=== PATIENT | female | born 1995 | race Two or more races ===

== ENCOUNTER 2022-12-21 12:17 | Outpatient (CLI) | payer OTHER, SELFPAY ==
[2022-12-21 13:33] LABS: Beta HCG Quantitative 75.27 mIU/ML
== END 2022-12-21 12:18 | disposition home or self-care (01) ==
LOC: ANHLAB 12:20
PROVIDERS: Visit Provider Obstetrics & Gynecology
DX: N92.6 Irregular menstruation, unspecified (principal)
CPT/HCPCS: 36415; 84702

== ENCOUNTER 2022-12-23 08:56 | Outpatient (CLI) | payer OTHER, SELFPAY ==
[2022-12-23 09:49] LABS: Beta HCG Quantitative 193.63 mIU/ML
== END 2022-12-23 08:57 | disposition home or self-care (01) ==
PROVIDERS: Visit Provider Obstetrics & Gynecology
DX: N92.6 Irregular menstruation, unspecified (principal)
CPT/HCPCS: 36415; 84702

== ENCOUNTER 2022-12-30 09:27 | Outpatient (CLI) | payer OTHER, SELFPAY | END 2022-12-30 09:28 | disposition home or self-care (01) | LOC: ANHLAB 09:28 | PROVIDERS: Visit Provider Obstetrics & Gynecology | DX: N92.6 Irregular menstruation, unspecified (principal) | CPT/HCPCS: 36415; 84702 ==

== ENCOUNTER 2023-02-04 10:26 | Outpatient (CLI) | payer OTHER, SELFPAY ==
[2023-02-04 11:02] LABS: Basophils Absolute Auto 0.1 K/mm3 (0.0-0.1); Basophils Percent Auto 0.5 % (0.2-1.2); Eosinophils Absolute Auto 0.2 K/mm3 (0-0.3); Eosinophils Percent Auto 1.4 % (0-4.4); Hematocrit 36.6 % (37.0-47.0); Hemoglobin 12.1 g/dL (12.0-15.0); Immature Granulocyte Absolute 0.04 K/mm3 (0.00-0.031); Immature Granulocyte Percent A 0.4 % (0-0.5); Lymphocytes Absolute Auto 1.87 K/mm3 (0.9-3.2); Lymphocytes Percent Auto 16.6 % (18.3-44.2); Mean Corpuscular HGB Conc 33.1 g/dl (32-36); Mean Corpuscular Hemoglobin 31.8 pg (26-34); Mean Corpuscular Volume 96.1 fl (80-100); Mean Platelet Volume 9.3 fl (7.4-10.4); Monocytes Absolute Auto 0.7 K/mm3 (0.1-0.6); Monocytes Percent Auto 6.2 % (2.6-8.5); Neutrophils Absolute Auto 8.4 K/mm3 (1.3-6.7); Neutrophils Percent Auto 74.9 % (45.5-73.1); Platelet Count Result 365 k/mm3 (150-375); Red Blood Count 3.81 M/mm3 (4.2-5.4); Red Cell Distribution Width 12.5 % (11.5-14.5); White Blood Count 11.3 K/mm3 (4.5-10.0)
[2023-02-04 12:00] LABS: HIV 1/2 Ab P24 Ag Result Negative (Negative)
[2023-02-04 12:39] LABS: Hepatitis B Surface Antigen Negative (Negative); Rubella IgG Antibody 5.1 IU/ML
[2023-02-04 17:06] LABS: Rapid Plasma Reagin Non-Reactive (NonReactive)
[2023-02-07 11:21] LABS: CMV IgG Antibody <0.60 U/mL (<0.60)
== END 2023-02-04 10:27 | disposition home or self-care (01) ==
PROVIDERS: PCP Internal Medicine; Visit Provider Obstetrics & Gynecology
DX: Z34.90 Encounter for supervision of normal pregnancy, unspecified, unspecified trimester (principal); Z3A.00 Weeks of gestation of pregnancy not specified
CPT/HCPCS: 36415; 85025; 86592; 86644; 86703; 86747; 86762; 86787; 86850; 87086; 87340; G0432

== ENCOUNTER 2023-06-11 09:32 | Outpatient (CLI) | payer OTHER, SELFPAY ==
[2023-06-11 11:48] LABS: Basophils Percent Auto 0.4 % (0.2-1.2); Eosinophils Absolute Auto 0.2 K/mm3 (0-0.3); Eosinophils Percent Auto 1.3 % (0-4.4); Hematocrit 33.9 % (37.0-47.0); Hemoglobin 10.9 g/dL (12.0-15.0); Immature Granulocyte Absolute 0.05 K/mm3 (0.00-0.031); Immature Granulocyte Percent A 0.4 % (0-0.5); Lymphocytes Absolute Auto 1.48 K/mm3 (0.9-3.2); Lymphocytes Percent Auto 13.1 % (18.3-44.2); Mean Corpuscular HGB Conc 32.2 g/dl (32-36); Mean Corpuscular Hemoglobin 31.4 pg (26-34); Mean Corpuscular Volume 97.7 fl (80-100); Mean Platelet Volume 10.2 fl (7.4-10.4); Monocytes Absolute Auto 0.8 K/mm3 (0.1-0.6); Monocytes Percent Auto 6.7 % (2.6-8.5); Neutrophils Absolute Auto 8.8 K/mm3 (1.3-6.7); Neutrophils Percent Auto 78.1 % (45.5-73.1); Platelet Count Result 352 k/mm3 (150-375); Red Blood Count 3.47 M/mm3 (4.2-5.4); Red Cell Distribution Width 12.4 % (11.5-14.5); White Blood Count 11.3 K/mm3 (4.5-10.0)
[2023-06-11 11:56] LABS: Glucose 1 Hour PP 50gm Dose 86 mg/dL
[2023-06-11 12:13] LABS: Iron 58 ug/dL (37-170)
[2023-06-11 12:23] LABS: Percent Iron Saturation 14 % (20-50)
[2023-06-11 12:38] LABS: HIV 1/2 Ab P24 Ag Result Negative (Negative)
[2023-06-11 12:49] LABS: Ferritin 9.66 ng/mL (6.24-137)
== END 2023-06-11 09:33 | disposition home or self-care (01) ==
LOC: ANHLAB 09:33
PROVIDERS: PCP Internal Medicine; Visit Provider Obstetrics & Gynecology
DX: Z34.90 Encounter for supervision of normal pregnancy, unspecified, unspecified trimester (principal); Z3A.00 Weeks of gestation of pregnancy not specified
CPT/HCPCS: 36415; 82728; 82947; 83540; 83550; 85025; 86703; G0432

== ENCOUNTER → 2023-08-04 16:20 | Outpatient (CLI) | payer OTHER, SELFPAY ==
--- NOTE | ~2023-08-04 | US_ITS ---
EXAMINATION: US OB follow up DATE: 08/04/2023 16:47 INDICATION: Evaluate growth TECHNIQUE: Real-time transabdominal obstetric ultrasound. FINDINGS: Comparison to multiple prior studies sequentially, with oldest reviewed study dated 023. There is a single living fetus in vertex presentation. The placenta is anterior without placenta pre via. cardiac activity and movement is noted with a heart rate of 130 beats per minute. T he amniotic fluid volume is upper normal. GABINO measures 24.6 cm. The following biometric data were obtained: BPD: 86mm corresponds to gestational age 34 weeks 4 days. Head circumference: 312mm corresponds to gestational age 34 weeks 6 days. Abdominal circumference: 309mm corresponds to gestational age 34 weeks 6 days. Femur length: 65mm corresponds to gestational age 33 weeks 3 days. Estimated weight: 2429grams +/- 364grams. IMPRESSION: 1. Single living intrauterine in vertex presentation with an estimated gestational age of 34 weeks 3 days by current ultrasound. 2. GABINO upper normal measuring 24.6 cm (normal range for gestational age is 7.7-24.9 cm). Reviewed, dictated and finalized at location B. O [facility] IMPRESSION: 1. Single living intrauterine in vertex presentation with an estimat ed gestational age of 34 weeks 3 days by current ultrasound. 2. GABINO upper normal measuring 24.6 cm (normal range for gestational age is 7.7- 24.9 cm).
== END ==
PROVIDERS: PCP Obstetrics & Gynecology; Visit Provider Obstetrics & Gynecology
DX: Z36.9 Encounter for antenatal screening, unspecified (principal); Z3A.34 34 weeks gestation of pregnancy
CPT/HCPCS: 76816

== ENCOUNTER 2023-08-11 21:37 | Observation (INO) | payer OTHER, SELFPAY ==
[2023-08-11] VITALS (8 sets, daily range): BP systolic 110–162; BP diastolic 62–99; PULSE 53–63; BMI 37.0
[2023-08-11 21:02] LABS: Basophils Percent Auto 0.5 % (0.2-1.2); Eosinophils Absolute Auto 0.1 K/mm3 (0-0.3); Eosinophils Percent Auto 1.6 % (0-4.4); Hematocrit 35.7 % (37.0-47.0); Hemoglobin 11.6 g/dL (12.0-15.0); Immature Granulocyte Absolute 0.02 K/mm3 (0.00-0.031); Immature Granulocyte Percent A 0.2 % (0-0.5); Lymphocytes Absolute Auto 2.33 K/mm3 (0.9-3.2); Lymphocytes Percent Auto 26.7 % (18.3-44.2); Mean Corpuscular HGB Conc 32.5 g/dl (32-36); Mean Corpuscular Hemoglobin 30.4 pg (26-34); Mean Corpuscular Volume 93.7 fl (80-100); Mean Platelet Volume 10.6 fl (7.4-10.4); Monocytes Absolute Auto 0.7 K/mm3 (0.1-0.6); Monocytes Percent Auto 7.6 % (2.6-8.5); Neutrophils Absolute Auto 5.5 K/mm3 (1.3-6.7); Neutrophils Percent Auto 63.4 % (45.5-73.1); Platelet Count Result 326 k/mm3 (150-375); Red Blood Count 3.81 M/mm3 (4.2-5.4); Red Cell Distribution Width 12.8 % (11.5-14.5); White Blood Count 8.7 K/mm3 (4.5-10.0)
[2023-08-11 21:09] LABS: Appearance Urine Clear (Clear); Bacteria Urine None Seen /hpf; Bilirubin Urine Negative (Negative); Blood Urine Negative (Negative); Color Urine Yellow (Yellow); Glucose Urine UA Negative (Negative); Ketones Urine Negative (Negative); Leukocyte Esterase Ur Negative LEU/UL (Negative); Nitrate Urine Negative (Negative); Non Pathogenic Casts 0-2; Protein Urine 1+ mg/dL (Negative); RBC Urine 0-2 /hpf (0-2); Specific Grav Ur 1.009 (1.001-1.035); Squamous Epithelial Cell Urine None seen /hpf (Few); Urobilinogen Urine 0.2 mg/dL (<2.0); WBC Urine 0-5 /hpf; pH Urine 6.5 (5.0-9.0)
[2023-08-11 21:10] LABS: Creatinine Urine 47.1 mg/dL; Total Protein Urine Random 45 mg/dL; Ur Ttl Prot Creatinine Ratio 0.96 mg/mg (0-0.20)
[2023-08-11 21:14] LABS: Add Urine Microscopic? YES
[2023-08-11 21:19] LABS: Alanine Aminotransferase 13 U/L (6-35); Albumin Level 3.4 g/dL (3.5-5.1); Alkaline Phosphatase 132 U/L (38-126); Anion Gap 10 mmol/L (8-16); Aspartate Amino Transferase 24 U/L (14-36); Bilirubin,Total 0.3 mg/dL (0.2-1.3); Blood Urea Nitrogen 14 mg/dL (7-17); Calcium 9.1 mg/dL (8.4-10.2); Carbon Dioxide 17 mmol/L (22-30); Chloride 108 mmol/L (98-107); Estimated CRCL calculation 90 ml/min; Estimated Glomerular Filt Rate > 60; Glucose 100 mg/dL (65-110); Potassium 4.3 mmol/L (3.4-5.0); Sodium 135 mmol/L (137-145); Uric Acid 8.5 mg/dL (2.5-7.5)
--- NOTE | 2023-08-11 22:36 | PC.NURSE ---
2137- Dr. Moody called and made aware of pts complaints of - headache rated 2/10 - elevated bp at home MD also made aware of - latest blood pressures - CBC/ CMP/ UA results -pts denial of changes in vision and upper quadrant pain. Orders received to admit pt for overnight observation and begin 24 hour urine as well as monitor blood pressures.
[2023-08-12] VITALS (24 sets, daily range): BP systolic 95–128; BP diastolic 59–84; PULSE 52–82
--- NOTE | 2023-08-12 07:19 | PC.NURSE ---
Dr. Neely at the bedside discussing POC with the pt. MD would like pt to complete 24 hour urine and return it and then follow up with Dr. Landa in the office early next week.
--- NOTE | 2023-08-12 08:45 | PC.NURSE ---
Dr. Landa called in and ordered that pt have NST, BPP and repeat PIH labs, no urine, on Tuesday.
--- NOTE | 2023-08-12 10:10 | PM.OBTRLD ---
OB - Triage/Final Diagnosis Visit Information Reason for evaluation: other ( Elevated blood pressure with headache) Comments/Additional reasons for admission: I have assessed the risk for this patient, Megan King, and determined that she would benefit from observation care. Evaluation Laboratory results: Laboratory Tests 08/11/23 20:55 WBC 8.7 RBC 3.81 L Hgb 11.6 L Hct 35.7 L MCV 93.7 MCH 30.4 MCHC 32.5 RDW 12.8 Plt Count 326 MPV 10.6 H Immature Gran % (Auto) 0.2 Neut % (Auto) 63.4 Lymph % (Auto) 26.7 [place] % (Auto) 7.6 Eos % (Auto) 1.6 Baso % (Auto) 0.5 Lymph # (Auto) 2.33 [place] # (Auto) 0.7 H Eos # (Auto) 0.1 Baso # (Auto) 0.0 Abs Immat Gran (auto) 0.02 Absolute Neuts (auto) 5.5 Absolute Nucleated RBC 0.0 Nucleated RBC % 0.0 Sodium 135 L Potassium 4.3 Chloride 108 H Carbon Dioxide 17 L Anion Gap 10 BUN 14 Creatinine 0.80 Estim Creat Clear Calc 90 Estimated GFR > 60 Glucose 100 Uric Acid 8.5 H Calcium 9.1 Total Bilirubin 0.3 AST 24 ALT 13 Alkaline Phosphatase 132 H Total Protein 7.0 Albumin 3.4 L Urine Color Yellow Urine Appearance Clear Urine pH 6.5 Ur Specific [place] 1.009 Urine Protein 1+ H Urine Glucose (UA) Negative Urine Ketones Negative Ur Blood (Man) Negative Urine Nitrate Negative Urine Bilirubin Negative Urine Urobilinogen 0.2 Leukocyte Esterase Rfl Negative Urine RBC 0-2 Urine WBC 0-5 Ur Squamous Epith Cells None seen Urine Bacteria None seen Urine Casts 0-2 U Random Total Protein 45 Urine Creatinine 47.1 Protein/Creat Ratio 2 0.96 H Vital signs: Vital Signs - 24 hr 08/11/23 21:00 08/11/23 21:31 08/11/23 22:16 Pulse Rate 62 54 L 54 L Blood Pressure 162/99 H 139/85 148/88 H Oxygen Delivery 08/11/23 22:30 08/11/23 22:45 08/11/23 23:15 Pulse Rate 58 L 53 L 63 Blood Pressure 144/90 H 134/86 127/86 Oxygen Delivery 08/11/23 23:31 08/11/23 23:45 08/12/23 00:15 Pulse Rate 60 62 56 L Blood Pressure 111/67 110/62 127/75 Oxygen Delivery 08/12/23 00:31 08/12/23 00:45 08/12/23 01:00 Pulse Rate 69 62 63 Blood Pressure 104/64 123/66 119/72 Oxygen Delivery 08/12/23 01:15 08/12/23 01:30 08/12/23 01:45 Pulse Rate 72 71 62 Blood Pressure 124/75 102/69 118/81 Oxygen Delivery 08/12/23 02:01 08/12/23 02:15 08/12/23 02:30 Pulse Rate 63 70 65 Blood Pressure 120/78 120/77 116/72 Oxygen Delivery 08/12/23 02:45 08/12/23 03:00 08/12/23 03:15 Pulse Rate 60 76 74 Blood Pressure 122/70 120/81 118/82 Oxygen Delivery 08/12/23 03:30 08/12/23 03:45 08/12/23 04:00 Pulse Rate 72 82 74 Blood Pressure 111/70 119/76 101/74 Oxygen Delivery 08/12/23 04:31 08/12/23 05:00 08/12/23 05:31 Pulse Rate 52 L 67 59 L Blood Pressure 123/69 128/84 95/59 L Oxygen Delivery 08/12/23 06:00 08/12/23 06:30 08/12/23 07:00 Pulse Rate 54 L 58 L 78 Blood Pressure 104/67 108/69 112/68 Oxygen Delivery 08/12/23 08:00 08/11/23 22:27 Pulse Rate 55 L Blood Pressure 128/81 Oxygen Delivery Room Air Comments: 27-year-old female admitted with headache and elevated blood pressure at home. Presents to Labor and delivery and the 1st couple of blood pressures were elevated, since that time all have been normal in the 120/70 range. All of her labs other than PC ratio have come back with normal findings. Also headache has resolved. Assessment 1. Hypertension, likely mild preeclampsia. Lengthy discussion with patient and regarding the nature of this entity. She is aware that if any symptoms change, movement changes, any other symptomatology of concern she is to return and likely at that time will be delivered. She agrees with the plan of continuing at home with bedrest and follow up next week, if any significant changes occur we will induce at that time. At this point would feel if another week to 10 days of could be achieved that would be helpful, and at t
== END 2023-08-12 08:50 | disposition home or self-care (01) ==
LOC: ANHOBPP 21:58 → ANHOBOP 23:49 → ANHOBPP 08-12 08:31
PROVIDERS: Admitting Provider Obstetrics & Gynecology; PCP Obstetrics & Gynecology; Visit Provider Obstetrics & Gynecology
DX: O99.413 Diseases of the circulatory system complicating pregnancy, third trimester (principal); I11.9 Hypertensive heart disease without heart failure; O26.893 Other specified pregnancy related conditions, third trimester; R51.9 Headache, unspecified; Z3A.37 37 weeks gestation of pregnancy
CPT/HCPCS: 36415; 59025; 80053; 81001; 82570; 84156; 84550; 85025; 87086; G0378; G0379

== ENCOUNTER 2023-08-12 17:03 | Inpatient (IN) | payer OTHER, SELFPAY ==
[2023-08-12] VITALS (22 sets, daily range): BP systolic 107–150; BP diastolic 58–95; PULSE 73–107; BMI 37.0
[2023-08-12 18:23] LABS: Basophils Absolute Auto 0.1 K/mm3 (0.0-0.1); Basophils Percent Auto 0.6 % (0.2-1.2); Eosinophils Absolute Auto 0.1 K/mm3 (0-0.3); Hematocrit 38.6 % (37.0-47.0); Hemoglobin 12.5 g/dL (12.0-15.0); Immature Granulocyte Absolute 0.03 K/mm3 (0.00-0.031); Immature Granulocyte Percent A 0.3 % (0-0.5); Lymphocytes Absolute Auto 2.05 K/mm3 (0.9-3.2); Lymphocytes Percent Auto 23.6 % (18.3-44.2); Mean Corpuscular HGB Conc 32.4 g/dl (32-36); Mean Corpuscular Hemoglobin 30.6 pg (26-34); Mean Corpuscular Volume 94.4 fl (80-100); Mean Platelet Volume 10.6 fl (7.4-10.4); Monocytes Absolute Auto 0.6 K/mm3 (0.1-0.6); Monocytes Percent Auto 6.9 % (2.6-8.5); Neutrophils Absolute Auto 5.9 K/mm3 (1.3-6.7); Neutrophils Percent Auto 67.6 % (45.5-73.1); Platelet Count Result 317 k/mm3 (150-375); Red Blood Count 4.09 M/mm3 (4.2-5.4); Red Cell Distribution Width 12.9 % (11.5-14.5); White Blood Count 8.7 K/mm3 (4.5-10.0)
[2023-08-12 18:36] LABS: Alanine Aminotransferase 14 U/L (6-35); Albumin Level 3.6 g/dL (3.5-5.1); Alkaline Phosphatase 146 U/L (38-126); Anion Gap 9 mmol/L (8-16); Aspartate Amino Transferase 25 U/L (14-36); Bilirubin,Total 0.3 mg/dL (0.2-1.3); Blood Urea Nitrogen 13 mg/dL (7-17); Calcium 9.5 mg/dL (8.4-10.2); Carbon Dioxide 19 mmol/L (22-30); Chloride 107 mmol/L (98-107); Estimated Glomerular Filt Rate > 60; Glucose 77 mg/dL (65-110); Potassium 3.7 mmol/L (3.4-5.0); Sodium 135 mmol/L (137-145); Uric Acid 8.4 mg/dL (2.5-7.5)
[2023-08-12] MEDS: DINOPROSTONE 10 MG VAG INSERT VAGINAL (18:44)
--- NOTE | 2023-08-12 19:16 | LDADM ---
This patient, Megan King, was admitted to Labor/Delivery/Recovery 104 on 08/12/23 at 17:03. Plans for labor, pain management and were discussed with patient. Patient/family oriented to hospital policies and general routines including ID bracelet, bed and alarms, visiting hours, pain management, procedures, bathroom and other care routines, personal items, smoking policy, room service/diet and guest tray routines, infant security routines, and visiting hours. Patient/Family are encouraged to report perceived risks to care and to ask questions if they do not understand what they are told or what they should do. See OBIX for further documentation.
[2023-08-12 23:16] LABS: Collection Time Urine 24 HOURS
[2023-08-12 23:26] LABS: Total Volume 24 Hour Urine 2900 ml
[2023-08-12 23:30] LABS: Total Protein Urine Random 31 mg/dL
[2023-08-12 23:31] LABS: Creatinine Clearance Urine 125.8 ml/min (75-125); Creatinine Urine 45.9 mg/dL; Patient Weight 189 Lbs
[2023-08-12 23:51] LABS: Total Protein Urine 24 Hr 899 mg/24hr (28-141)
[2023-08-12 23:55] LABS: Specific Gravity Ur 1.015
[2023-08-13] VITALS (228 sets, daily range): BP systolic 103–163; BP diastolic 61–127; PULSE 57–170; RESP 18; TEMP 36.4–37.4; O2SAT 92–100
[2023-08-13] MEDS: hydrOXYzine HCL 25 MG TABLET PO (03:31)
[2023-08-13] MEDS: ACETAMINOPHEN 500 MG TABLET 1000 MG PO (03:42)
[2023-08-13] MEDS: OXYTOCIN 30 UNITS/NS 500 ML 30 UNITS/500 ML BAG 6 UNITS IV CONT (05:48)
[2023-08-13] MEDS: LACTATED RINGERS 1,000 ML 125 ML IV CONT ×2 (05:48→11:00)
--- NOTE | 2023-08-13 07:43 | WPDHPUPDATE1 ---
History and Physical Update Update Date/Time: 08/13/23 07:43 27-year-old female seen yesterday Labor and delivery for elevated blood pressure. These pressures resolved and patient was feeling well was discharged home with parameters for which to return. Blood pressure was 140-150 over 90s and therefore re-presented last night. Cervidil was initiated. History and Physical has been reviewed, including an updated exam of the patient. There are NO changes in the patient's condition. Risks, benefits, and alternatives have been discussed and questions answered. Patient agrees to proceed with procedure.
--- NOTE | 2023-08-13 07:45 | WPDOBADMIT ---
Obstetrics - Admit Note Admission Note: record reviewed. No pertinent additions to the history and/or any subsequent changes in the physical findings that are not consistent with the expected course of the were found. Additions to the history and/or subsequent changes in the physical findings follow. See H&P update. Also with elevated protein in 24hour urine from last preeclampsia without severe features is ruled in. None.
[2023-08-13] MEDS: fentaNYL CITRATE INJ (*CRX) 100 MCG/2 ML VIAL IV PUSH (09:07)
--- NOTE | 2023-08-13 09:25 | WPDANESEPP ---
Anes - Eval Pre Procedure Procedure: labor epidural Date/Time: 08/13/23 09:25 Preop Diagnosis: labor pain Pre Op Diagnosis: Induction of Labor Patient Data Age: 27 Gender: F Height: 1.52 m Weight: 86 kg Last Vital Signs Temp 36.6 C 08/13/23 08:50 Pulse 93 08/13/23 09:20 BP 133/82 08/13/23 09:20 Pulse Ox 96 08/13/23 09:23 O2 Del Method Room Air 08/13/23 06:00 Allergies Allergy/AdvReac Type Severity Reaction Status Date / Time sulfamethoxazole AdvReac Unknown Gastrointestinal Verified 08/12/23 19:27 [From Bactrim] Upset trimethoprim [From Bactrim] AdvReac Unknown Gastrointestinal Verified 08/12/23 19:27 Upset Home Medications Medication Instructions Recorded Confirmed Type docosahexaenoic acid 200 mg 200 mg PO DAILY 07/06/23 08/12/23 History capsule ( DHA) ferrous sulfate 325 mg (65 mg 325 mg PO DAILY 07/06/23 08/12/23 History iron) tablet (Feosol) Laboratory Tests 08/12/23 08/12/23 08/12/23 18:14 22:36 22:36 WBC 8.7 K/mm3 (4.5-10.0) RBC 4.09 L M/mm3 (4.2-5.4) Hgb 12.5 g/dL (12.0-15.0) Hct 38.6 % (37.0-47.0) MCV 94.4 fl (80-100) MCH 30.6 pg (26-34) MCHC 32.4 g/dl (32-36) RDW 12.9 % (11.5-14.5) Plt Count 317 k/mm3 (150-375) MPV 10.6 H fl (7.4-10.4) Immature Gran % (Auto) 0.3 % (0-0.5) Neut % (Auto) 67.6 % (45.5-73.1) Lymph % (Auto) 23.6 % (18.3-44.2) [place] % (Auto) 6.9 % (2.6-8.5) Eos % (Auto) 1.0 % (0-4.4) Baso % (Auto) 0.6 % (0.2-1.2) Lymph # (Auto) 2.05 K/mm3 (0.9-3.2) [place] # (Auto) 0.6 K/mm3 (0.1-0.6) Eos # (Auto) 0.1 K/mm3 (0-0.3) Baso # (Auto) 0.1 K/mm3 (0.0-0.1) Abs Immat Gran (auto) 0.03 K/mm3 (0.00-0.031) Absolute Neuts (auto) 5.9 K/mm3 (1.3-6.7) Absolute Nucleated RBC 0.0 K/mm3 (0.0-0.012) Nucleated RBC % 0.0 % (0.0-0.2) Sodium 135 L mmol/L (137-145) Potassium 3.7 mmol/L (3.4-5.0) Chloride 107 mmol/L (98-107) Carbon Dioxide 19 L mmol/L (22-30) Anion Gap 9 mmol/L (8-16) BUN 13 mg/dL (7-17) Creatinine 0.70 mg/dL (0.7-1.0) Estim Creat Clear Calc Not Reportable Estimated GFR > 60 (59 - ) Glucose 77 mg/dL (65-110) Uric Acid 8.4 H mg/dL (2.5-7.5) Calcium 9.5 mg/dL (8.4-10.2) Total Bilirubin 0.3 mg/dL (0.2-1.3) AST 25 U/L (14-36) ALT 14 U/L (6-35) Alkaline Phosphatase 146 H U/L (38-126) Total Protein 7.0 g/dL (6.3-8.2) Albumin 3.6 g/dL (3.5-5.1) U Random Total Protein 31 mg/dL Ur 24 Hour Volume 2900 ml 2900 ml Urine Creatinine 45.9 mg/dL Creatinine Clearance 125.8 H ml/min (75-125) Ur Total Protein 24 Hr 899 H mg/24hr (28-141) RPR Pending Blood Type O Positive Antibody Screen Negative Patient hx anesthesia problems: none Family hx anesthesia problems: none Results Review: All pre-operative results and documents have been reviewed as part of the pre-operative evaluation. [facility] Past Medical History Medical History Frequent headaches Migraines Surgical History Surgical History Mccall teeth removed Family History Family History Grandparent Diabetes mellitus Grandparent Afib Social History Social History Smoking status: Never smoker Alcohol intake: never Substance use: never Do You Feel Safe in your Home?: Yes Lack o
--- NOTE | 2023-08-13 18:49 | PM.OBPRVD ---
OB - Vaginal Delivery Note Procedure Delivery date: 08/13/23 Events: Preeclampsia w/o severe features Induction method: Per Cervidil Protocol Delivery augmentation: Rupture of Membranes and Pitocin Delivery monitor: External FHT and Internal Uterine Route of delivery: Episiotomy description: None Laceration Description: Perineal - 2nd Degree Delivery repair: chromic Specimen: Yes Quantitative Blood Loss (ml): 300 Anesthesia type: Epidural Disposition: Floor Complications: No immediate complications Narrative: Patient prepped in usual manner for this procedure. Maternal expulsive efforts readily delivered vertex over intact perineum. Nuchal cord was noted and reduced. Rest of baby delivered without difficulty, cord clamped cut, and baby placed on maternal abdomen. Placenta delivered spontaneously. Uterus well contracted with minimal bleeding. Second-degree laceration was noted which was then approximated using 2-0 chromic to approximate the vaginal tissue deep tissue and a subcuticular layer with good approximation and hemostasis noted. At this point the procedure was considered terminated with immediate postoperative condition of mother and baby both excellent. Baby Weeks of gestation at delivery: 37 Infant gender: Female presentation: vertex position: Right Occiput Anterior Placenta delivery description: Spontaneous Cord Vessel Description: 3 Vessels, Nuchal Cord and Reduced AMG Delivery Billing Delivery Delivery: Delivery Charge
[2023-08-13] MEDS: OXYTOCIN 30 UNITS/NS 500 ML 30 UNITS/500 ML BAG 125 UNITS IV CONT (18:56)
[2023-08-13] MEDS: BENZOCAINE 20% AER SPR (*SP) 56 GM CAN 1 SPRAY TOPICAL (19:20)
[2023-08-13] MEDS: IBUPROFEN 600 MG TABLET PO (19:20)
[2023-08-13] MEDS: WITCH HAZEL 40 PADS 1 PAD TOPICAL (19:20)
--- NOTE | 2023-08-13 21:37 | OBPPTRN ---
Patient transferred to post room #290 via (wheelchair) Support person present. Oriented to unit, room, information board, rooming in, admission packet and security measures. Patient verbalizes understanding.
[2023-08-13] MEDS: ACETAMINOPHEN 325 MG TABLET 650 MG PO (22:00)
[2023-08-13] MEDS: LABETALOL HCL 100 MG TABLET PO (22:03)
[2023-08-14] VITALS (8 sets, daily range): BP systolic 108–144; BP diastolic 62–95; PULSE 67–86; RESP 16–18; TEMP 36.6–36.8; O2SAT 98–99
[2023-08-14 04:31] LABS: Hematocrit 29.6 % (37.0-47.0); Hemoglobin 9.6 g/dL (12.0-15.0)
[2023-08-14] MEDS: IBUPROFEN 600 MG TABLET PO ×3 (05:50→20:31)
[2023-08-14] MEDS: ACETAMINOPHEN 325 MG TABLET 650 MG PO ×2 (07:36→16:00)
[2023-08-14] MEDS: DOCUSATE SODIUM 100 MG CAPSULE PO ×2 (07:36→16:01)
[2023-08-14] MEDS: POLYSACCHARIDE IRON COMPLEX 150 MG CAPSULE PO ×2 (07:36→16:00)
[2023-08-14] MEDS: LABETALOL HCL 100 MG TABLET PO ×2 (09:15→20:30)
--- NOTE | 2023-08-14 10:57 | PM.OBPNVD ---
OB - PN: Subj Subjective Date/time seen: 08/14/23 10:57 No c/o CHIU, SOB, CP. Moderate bleeding. No other c/o. BP 120-130/70-90 abd soft fundus NT labs noted Home tomorrow if no issues Hospital f/u 24-48 hours post d/c Office one week post d/c OB - PN: Obj Data Labs 08/14/23 04:19 08/12/23 18:14 Labs: Laboratory Results - last 24 hr 08/14/23 04:19 Hgb 9.6 L Hct 29.6 L OB - PN A/P Time Spent With Patient Time: Total time spent is greater than 50% in coordination of care (as documented) at patient's floor/unit and/or counseling patient:
--- NOTE | 2023-08-14 10:59 | PM.OBDSVD ---
DS: Admitting Diagnosis Discharge Date 08/15/2023 Admitting Diagnosis 1. Thirty-seven week in term 2. preeclampsia without severe feature DS: Discharge Diagnosis Discharge Diagnosis (1) 37 weeks gestation of : Code(s): Z3A.37 - 37 weeks gestation of Status: Acute (2) Pre-eclampsia during in third trimester, antepartum: Code(s): O14.93 - Unspecified pre-eclampsia, third trimester Status: Acute OB - DS: Summary OB Procedures : None OB Procedures Intrapartum: Spontaneous Vag Delivery OB Procedures: : None Peripartum Data Laceration Description: Perineal - 2nd Degree Episiotomy description: None Time Spent with Patient Time attestation: Total time spent providing and/or coordinating discharge services: DS: Data Data Completed and Pending Pending studies at discharge: Pending at discharge 08/13/23 19:22 Surgical [PTH] Routine Labs on day of discharge: Labs from last 24 hours 08/14/23 04:19 Hgb 9.6 L Hct 29.6 L Discharge Plan Discharge Discharging Clinician: Van Neely Patient Disposition: Home, Self-Care Activity: as tolerated Diet: as tolerated Patient Instructions: Antibiotic Form Stand Alone Forms: General Discharge Information Follow-up/Referrals: Valerie Landa MD [Primary Care Provider] - 1 Week Discharge Medications: New labetalol 100 mg Tablet 100 mg PO Q12HR Qty: 60 1RF ibuprofen 600 mg Tablet 600 mg PO Q6H PRN (Reason: Cramping) Qty: 30 0RF Continued DHA 200 mg capsule 200 mg PO DAILY ferrous sulfate [Feosol] 325 mg (65 mg iron) tablet 325 mg PO DAILY Date of admission: 08/12/23 17:03 Primary Care Provider: Valerie Landa Admitting Provider: Van Neely Attending physician on admission: Van Neely Condition: Stable
--- NOTE | 2023-08-14 19:10 | PC.NURSE ---
Patient instructed to view the discharge video Mother & Baby Care, The First Two Weeks online. Patient was given the opportunity and encouraged to ask questions. Patient verbalized understanding of information shared and has been given the mother/baby guide for home reference.
[2023-08-15 05:05] VITALS: BP 123/81; PULSE 80
[2023-08-15] MEDS: IBUPROFEN 600 MG TABLET PO (05:07)
[2023-08-15 09:25] VITALS: BP 143/105; PULSE 84; RESP 16; TEMP 36.7; O2SAT 97
[2023-08-15] MEDS: ACETAMINOPHEN 325 MG TABLET 650 MG PO (09:25)
[2023-08-15 09:27] VITALS: PULSE 84
[2023-08-15] MEDS: LABETALOL HCL 100 MG TABLET PO (09:27)
[2023-08-15] MEDS: POLYSACCHARIDE IRON COMPLEX 150 MG CAPSULE PO (09:27)
[2023-08-15] MEDS: DOCUSATE SODIUM 100 MG CAPSULE PO (09:28)
[2023-08-15] MEDS: MEASLES,MUMPS,RUBELLA VACCINE 0.5 ML VIAL SUB-Q (09:29)
[2023-08-15 10:05] VITALS: BP 128/92
--- NOTE | 2023-08-15 12:50 | PC.NURSE ---
1000 Patient viewed the discharge video Mother & Baby Care, The First Two Weeks . Patient was given the opportunity and encouraged to ask questions. Patient verbalized understanding of information shared and has been given the mother/baby guide for home reference.
[2023-08-15 13:41] LABS: Rapid Plasma Reagin Non-Reactive (NonReactive)
[2023-08-16 10:25] VITALS: BP 133/87; PULSE 75; RESP 18; TEMP 37.3; O2SAT 100
== END 2023-08-15 12:25 | disposition home or self-care (01) | DRG 807 ==
LOC: ANHLDR 19:01 → ANHOB2 08-13 21:50
PROVIDERS: Admitting Provider Obstetrics & Gynecology; PCP Obstetrics & Gynecology; Visit Provider Obstetrics & Gynecology
DX: O14.94 Unspecified pre-eclampsia, complicating childbirth (principal); Z37.0 Single live birth; Z3A.37 37 weeks gestation of pregnancy; O13.4 Gestational [pregnancy-induced] hypertension without significant proteinuria, complicating childbirth; O70.1 Second degree perineal laceration during delivery; O69.81X0 Labor and delivery complicated by cord around neck, without compression, not applicable or unspecified
CPT/HCPCS: 36415; 59025; 80053; 81001; 81050; 82570; 82575; 84112; 84156; 84550; 85014; 85018; 85025; 86592; 86850; 86900; 86901; 87086; 88307; 90710; A9270; G0378; G0379; J2590; J2795; J3010; J7120

== ENCOUNTER 2023-08-26 08:30 | Outpatient (CLI) | payer OTHER, SELFPAY ==
[2023-08-26 08:46] VITALS: BP 134/87; PULSE 62
[2023-08-26 09:00] VITALS: BP 130/85; PULSE 63
[2023-08-26 09:15] VITALS: BP 131/83; PULSE 54
[2023-08-26 09:21] LABS: Basophils Absolute Auto 0.1 K/mm3 (0.0-0.1); Basophils Percent Auto 1.2 % (0.2-1.2); Eosinophils Absolute Auto 0.2 K/mm3 (0-0.3); Eosinophils Percent Auto 3.2 % (0-4.4); Hematocrit 36.5 % (37.0-47.0); Hemoglobin 11.1 g/dL (12.0-15.0); Immature Granulocyte Absolute 0.02 K/mm3 (0.00-0.031); Immature Granulocyte Percent A 0.3 % (0-0.5); Lymphocytes Absolute Auto 1.66 K/mm3 (0.9-3.2); Mean Corpuscular HGB Conc 30.4 g/dl (32-36); Mean Corpuscular Hemoglobin 29.9 pg (26-34); Mean Corpuscular Volume 98.4 fl (80-100); Mean Platelet Volume 8.7 fl (7.4-10.4); Monocytes Absolute Auto 0.3 K/mm3 (0.1-0.6); Monocytes Percent Auto 4.9 % (2.6-8.5); Neutrophils Absolute Auto 4.6 K/mm3 (1.3-6.7); Neutrophils Percent Auto 66.4 % (45.5-73.1); Platelet Count Result 501 k/mm3 (150-375); Red Blood Count 3.71 M/mm3 (4.2-5.4); Red Cell Distribution Width 13.4 % (11.5-14.5); White Blood Count 6.9 K/mm3 (4.5-10.0)
[2023-08-26 09:21] LABS: Appearance Urine Clear (Clear); Bacteria Urine None Seen /hpf; Bilirubin Urine Negative (Negative); Blood Urine Negative (Negative); Color Urine Yellow (Yellow); Creatinine Urine 29.9 mg/dL; Glucose Urine UA Negative (Negative); Ketones Urine Negative (Negative); Leukocyte Esterase Ur 2+ LEU/UL (Negative); Nitrate Urine Negative (Negative); Non Pathogenic Casts 0-2; Protein Urine Negative (Negative); RBC Urine 0-2 /hpf (0-2); Specific Grav Ur 1.006 (1.001-1.035); Squamous Epithelial Cell Urine None seen /hpf (Few); Total Protein Urine Random 16 mg/dL; Ur Ttl Prot Creatinine Ratio 0.54 mg/mg (0-0.20); Urobilinogen Urine 0.2 mg/dL (<2.0)
[2023-08-26 09:30] VITALS: BP 136/83; PULSE 62
[2023-08-26 09:30] LABS: Add Urine Microscopic? YES
[2023-08-26 09:34] LABS: Alanine Aminotransferase 28 U/L (6-35); Albumin Level 3.8 g/dL (3.5-5.1); Alkaline Phosphatase 85 U/L (38-126); Anion Gap 6 mmol/L (8-16); Aspartate Amino Transferase 42 U/L (14-36); Bilirubin,Total 0.4 mg/dL (0.2-1.3); Blood Urea Nitrogen 9 mg/dL (7-17); Calcium 9.6 mg/dL (8.4-10.2); Carbon Dioxide 25 mmol/L (22-30); Chloride 107 mmol/L (98-107); Estimated Glomerular Filt Rate > 60; Glucose 79 mg/dL (65-110); Potassium 3.9 mmol/L (3.4-5.0); Sodium 138 mmol/L (137-145); Uric Acid 6.2 mg/dL (2.5-7.5)
[2023-08-26 09:45] VITALS: BP 142/98; PULSE 57
--- NOTE | 2023-08-26 09:52 | PC.NURSE ---
0979--Report to Dr. Landa re: BP's and lab results. Orders to DC home with instructions to increase Labetalol to 400mg po BID and give her a dose before DC.
[2023-08-26 10:03] VITALS: PULSE 64
[2023-08-26] MEDS: LABETALOL HCL 100 MG TABLET 400 MG PO (10:03)
== END 2023-08-26 10:10 | disposition home or self-care (01) ==
LOC: ANHOBOP 08:36 → ANHOBPP 08:38
PROVIDERS: PCP Obstetrics & Gynecology; Visit Provider Obstetrics & Gynecology
DX: O16.5 Unspecified maternal hypertension, complicating the puerperium (principal)
CPT/HCPCS: 36415; 80053; 81001; 82570; 84156; 84550; 85025; 87086; 99199; A9270